=== PATIENT | female | born 1980 | race Caucasian/White ===

== ENCOUNTER 2020-01-14 19:17 | Emergency (ER) | payer SELFPAY ==
[~2020-01-14] VITALS: Ht 162.6 cm; Wt 75.0 kg
[2020-01-14] MEDS ORDERED: LIDOCAINE 1% PF 2 ML VIAL. INJ ONE (20:45)
[2020-01-14] MEDS ORDERED: CLINDAMYCIN HCL 150 MG CAPSULE. PO ONE (20:45)
--- NOTE | 2020-01-14 21:08 | RAD ---
FINGER(S) LEFT History: Reason: middle finger pain, warmth, and swelling over DIP limited ROM / Spl. Instructions: / History: Technique: 3 views left third digit. Comparison: None. Findings: Normal alignment. No fracture. No radiographic evidence of osteomyelitis. Third digit soft tissue swelling. Impression: 1. No acute osseous abnormality. 2. Third digit soft tissue swelling. Electronically signed by: Jaylon Paredes DO (01/14/2020 9:05 PM) [facility]
[2020-01-14] MEDS ORDERED: CLIN150C14 PO (21:43)
--- NOTE | 2020-01-14 21:43 | PHYS DOC ---
Past Medical History Past Medical History: Alcoholism Past Surgical History: Other Additional Past Surgical Histo: RIGHT FINGER Smoking Status: Current Every Day Smoker Additional Information: 5-10 CIGARETTES PER DAY Alcohol Use: None Additional Information: ALCOHOLISM PRIOR TO NOVEMBER 2019 General Adult EDM: Chief Complaint: SKIN PROBLEM HPI: HPI: Patient is a 39 year old female who presents emergency department with complaints of redness, pain, and swelling to the palmar aspect of the DIP of her left third digit. Patient states the pain and swelling began today. She reports decreased range of motion, she denies any decreased sensation of the affected digit. Patient reports that she had been applying Compound W to wart in the area for a few days until the symptoms began today. She denies any fever, bleeding, or discharge from the affected site. She currently rates her pain a 10 out of 10 on pain scale, she denies any alleviating factors, the pain is worse with palpation and movement. Review of Systems: Review of Systems: Complete ROS is negative unless otherwise stated in the HPI. Heart Score: Risk Factors: Risk Factors: DM, Current or recent (<one month) smoker, HTN, HLP, family history of CAD, obesity. Risk Scores: Score 0 - 3: 2.5% MACE over next 6 weeks - Discharge Home Score 4 - 6: 20.3% MACE over next 6 weeks - Admit for Clinical Observation Score 7 - 10: 72.7% MACE over next 6 weeks - Early Invasive Strategies Current Medications: Current Medications Medications (Trade) Dose Ordered Sig/Klaudia Start Time Stop Time Status Last Admin Dose Admin Clindamycin HCl (Cleocin) 300 mg 1X ONCE 01/14/20 20:45 01/14/20 21:09 DC 01/14/20 21:07 300 MG Lidocaine HCl (Xylocaine-Mpf 1% 2ml Vial) 6 ml 1X ONCE 01/14/20 20:45 01/14/20 21:09 DC 01/14/20 21:08 6 ML Allergies: Allergies: Allergies Coded Allergies Type Severity Reaction Last Updated Verified No Known Drug Allergies 01/14/20 No Physical Exam: PE: Constitutional: Well developed, well nourished, no acute distress, non-toxic appearance. [] HENT: Normocephalic, atraumatic, bilateral external ears normal, nose normal. [] Eyes: PERRLA, EOMI, conjunctiva normal, no discharge. [] Neck: Normal range of motion, no stridor. [] Cardiovascular:Heart rate regular rhythm Lungs & Thorax: Respirations even and unlabored, no retractions, no respiratory distress Abdomen: soft, no tenderness Skin: Warm, dry; edema, redness, and warmth consistent with abscess noted to the palmar aspect of the DIP of the left third finger, callus over the left third digit DIP concerning for wart Extremities: Third digit of left hand: Sensation intact, range of motion limited due to swelling and pain, no obvious deformity, tenderness over the DIP, no cyanosis, ROM intact, no edema. [] Neurologic: Alert and oriented X 3, no focal deficits noted. [] Psychologic: Affect normal, judgement normal, mood normal. [] Current Patient Data: Vital Signs: Vital Signs Date Time Temp Pulse Resp B/P (MAP) Pulse Ox O2 Delivery O2 Flow Rate FiO2 01/14/20 20:30 97.9 84 24 155/77 (103) 100 Room Air 97.9 EKG: EKG: [] Radiology/Procedures: Radiology/Procedures: PROCEDURE: FINGER(S) LEFT FINGER(S) LEFT History: Reason: middle finger pain, warmth, and swelling over DIP limited ROM / Spl. Instructions: / History: Technique: 3 views left third digit. Comparison: None. Findings: Normal alignment. No fracture. No radiographic evidence of osteomyelitis. Third digit soft tissue swelling. Impression: 1. No acute osseous abnormality. 2. Third digit soft tissue swelling.[] Indication: abscess Procedure: The patient was positioned appropriately. Local anesthesia a digital block to the third digit of the left hand with 1% lidocaine. An 11 blade scalpel was used to make an incision over the apex of the lesion and moderate amount of bloody pus material was expressed. The patient tolerated the procedure well. Complications: none. Course & Med Decision Making: Course & Med Decision Making Pertinent Labs and Imaging studies reviewed. (See chart for details) [] Dragon Disclaimer: Travon Disclaimer: This electronic medical record was generated, in whole or in part, using a voice recognition dictation system. Departure Departure Impression: Primary Impression: Viral wart on finger Additional Impression: Abscess of finger of left hand Disposition: 01 DC HOME SELF CARE/HOMELESS Condition: STABLE Referrals: NO PCP (PCP) Patient Instructions: Abscess, Care After, Warts, [id number] Additional Instructions: Fill the prescription(s) and use as directed. You may take tylenol or ibuprofen as needed for pain. Leave the Dressing that was placed in the ER in place for the next 24 hours, then change the dressing twice daily and apply antibiotic ointment as needed. You may apply warm, moist packs to the area to help decrease discomfort. Discontinue use of Compound W. Follow up with your primary care doctor or return to the ER in 48 hours to have wound rechecked. Return to the ER sooner if your symptoms worsen or you develop a fever. [facility] [address] [place] [address] [facility] [address] [place] [address] [facility] [address] [facility] [place] [address] [facility] [address] [place] [address] [facility] [address] [place] [address] [facility] [address] [place] [address] [facility] [address] [place] [address] [facility] [address] [place] [address] [facility] [address] [place] [address] [facility] [address] [place] [address] Scripts Clindamycin Hcl (CLINDAMYCIN HCL) 150 Mg Capsule 450 MG PO TID for 7 Days, #63 CAP 0 Refills Prov: MARIANO DAVIS APRN 01/14/20 MARIANO DAVIS APRN Jan 14, 2020 21:43
[2020-01-14 22:00] VITALS: BP 137/79
== END 2020-01-14 22:05 | disposition home or self-care (01) ==
LOC: ER 19:17
DX: L02.512 Cutaneous abscess of left hand (principal); F17.210 Nicotine dependence, cigarettes, uncomplicated
CPT/HCPCS: 26010; 73140; J3490; 99285-25